=== PATIENT | male | born 2000 | race African-American/Black ===

== ENCOUNTER 2018-06-21 23:18 | Emergency (ER) | payer SELFPAY ==
[2018-06-21] MEDS ORDERED: Ondansetron ODT TAB* 4 MG PO ONE (23:46)
[2018-06-21] MEDS ORDERED: Ketorolac INJ* 60 MG/2 ML VIAL IM ONE (23:56)
--- NOTE | 2018-06-22 | ED ---
GI/ HPI - HPI Summary HPI Summary: 17-year-old male presents with abdominal pain and vomiting for the past hour. he also admits to a headache. States he may have had food poisoning. He admits to diarrhea. He admits to pain in his epigastric region. he has a generalized headache. Hasn't taking anything for his headache. Denies any sore throat. He denies any recent illness. No fevers. No neck stiffness. No photophobia. No medical conditions. never had this before. no blood in his stool. no recent travel. He states abdominal pain is worst than headache. - History of Current Complaint Chief Complaint: EDNauseaVomitDiarrh Time Seen by Provider: 06/21/18 23:51 Stated Complaint: POSS FOOD POSIONING Pain Intensity: 10 - Allergy/Home Medications Allergies/Adverse Reactions: Allergies Allergy/AdvReac Type Severity Reaction Status Date / Time Penicillins AdvReac Severe Difficulty Verified 06/21/18 23:24 Breathing PMH/Surg Hx/FS Hx/Imm Hx Endocrine/Hematology History: Denies: Hx Anticoagulant Therapy Respiratory History: Denies: Hx Asthma Infectious Disease History: No Infectious Disease History: Denies: Traveled Outside the [place] in Last 30 Days - Family History Known Family History: Negative: Diabetes - Social History Alcohol Use: Occasionally Substance Use Type: Reports: Marijuana Smoking Status (MU): Former Smoker Review of Systems Negative: Fever Negative: Chest Pain Negative: Shortness Of Breath Positive: Abdominal Pain, Vomiting, Nausea. Negative: Diarrhea Positive: Headache All Other Systems Reviewed And Are Negative: Yes Physical Exam Triage Information Reviewed: Yes Vital Signs On Initial Exam: Initial Vitals Temp Pulse Resp BP Pulse Ox 97.9 F 92 20 142/87 97 06/21/18 23:21 06/21/18 23:21 06/21/18 23:21 06/21/18 23:21 06/21/18 23:21 Vital Signs Reviewed: Yes Appearance: Positive: Well-Appearing Skin: Positive: Warm, Dry Head/Face: Positive: Normal Head/Face Inspection Eyes: Positive: Normal, Conjunctiva Clear ENT: Positive: Pharynx normal Respiratory/Lung Sounds: Positive: Clear to Auscultation, Breath Sounds Present Cardiovascular: Positive: Normal, RRR Abdomen Description: Positive: Soft, Other: - tenderness epigastric region Bowel Sounds: Positive: Present Musculoskeletal: Positive: Normal Neurological: Positive: Normal Psychiatric: Positive: Normal Diagnostics - Vital Signs Vital Signs Temp Pulse Resp BP Pulse Ox 06/21/18 23:21 97.9 F 92 20 142/87 97 - Laboratory Result Diagrams: 06/22/18 00:07 06/22/18 00:07 Lab Statement: Any lab studies that have been ordered have been reviewed, and results considered in the medical decision making process. Re-Evaluation - Re-Evaluation First Eval Re-Evaluation Time: 00:44 Change: Improved Comment: no longer nauseous. feeling better. GIGU Course/Dx - Course Course Of Treatment: 17-year-old male presents with abdominal pain and vomiting for the past hour. he also admits to a headache. States he may have had food poisoning. He admits to diarrhea. He admits to pain in his epigastric region. he has a generalized headache. Hasn't taking anything for his headache. Denies any sore throat. He denies any recent illness. No fevers. No neck stiffness. No photophobia. No medical conditions. never had this before. no blood in his stool. no recent travel. on exam lungs CTA. abd tenderness epigastric. wbc normal. electrolytes normal. strept neg. feeling better after zofran and toradol. will send home with zofran. patient understand and agrees with plan. - Diagnoses Differential Diagnoses - Male: Gastroenteritis (Bacterial), Gastroenteritis ( Viral), Vomiting Provider Diagnoses: Vomiting, Headache Discharge - Sign-Out/Discharge Documenting (check all that apply): Patient Departure - Discharge Plan Condition: Good Disposition: HOME Prescriptions: Ondansetron ODT TAB* [Zofran 4 MG Odt TAB*] 4 mg PO Q6H PRN #12 tab.odt PRN Reason: Nausea Patient Education Materials: Acute Nausea and Vomiting (ED) Additional Instructions: Can take Zofran every 6 hours as needed for nausea Drink small amounts of fluid as tolerated When able to eat follow BRAT diet: Bananas, rice, applesauce, toast Take ibuprofen or Tylenol for pain as needed every 6 hours Follow up with primary within 5 days Return to ED if develop any new or worsening symptoms - Billing Disposition and Condition Condition: GOOD Disposition: Home
[2018-06-22 00:40] LABS: ABS Basophils 0 10^3/ul (0-0.2); ABS Eosinophils 0 10^3/ul (0-0.6); ABS Lymphocytes 2.9 10^3/ul (1.0-4.8); ABS Monocytes 0.8 10^3/ul (0-0.8); ABS Nucleated RBC 0 10^3/ul; Eosinophil % 0.1 % (0-6); Hematocrit 44 % (42-52); Hemoglobin 15.2 g/dl (14.0-18.0); Lymphocyte % 33.2 % (25-47); Mean Corpuscular HGB Conc 35 g/dl (31-36); Mean Corpuscular Hemoglobin 29 pg (27-31); Mean Corpuscular Volume 84 fL (80-94); Mean Platelet Volume 8.2 um3 (7.4-10.4); Nucleated Red Blood Cells % 0.2; Platelet Count 212 10^3/ul (150-450); Red Blood Count 5.25 10^6/ul (4.00-5.40); Red Cell Distribution Width 13 % (10.5-15); White Blood Count 8.9 10^3/ul (3.5-10.8)
[2018-06-22] MEDS ORDERED: O ndansetron ODT 4MG 2TAB PRPK 4 MG PAK PO ONE (00:52)
[2018-06-22 01:19] VITALS: BP 140/82
[2018-06-22] MEDS ORDERED: Ondansetron ODT TAB* 4 MG PO ONE (02:00)
== END 2018-06-22 01:18 | disposition home or self-care (01) ==
LOC: ED 23:18
DX: R11.2 Nausea with vomiting, unspecified (principal); R51 Headache; R19.7 Diarrhea, unspecified; R10.816 Epigastric abdominal tenderness; Z88.0 Allergy status to penicillin; Z87.891 Personal history of nicotine dependence
CPT/HCPCS: 36415; 80053; 85025; 87651; 96372; 99282; A9270-GY; J1885